=== PATIENT | male | born 1975 | race Caucasian/White ===

== ENCOUNTER 2018-01-20 17:13 | Emergency (ER) | payer SELFPAY ==
[~2018-01-20] VITALS: Ht 190.5 cm; Wt 74.8 kg
[~2018-01-20 17:13] MED LIST: AMOXICILLIN500 MG PO; NORCO 5-325 TA1 EACH PO
[2018-01-20] MEDS ORDERED: NORCO 5-325 TA1 EACH PO (18:06)
[2018-01-20] MEDS ORDERED: CILOXAN3.5 GM OPTH (18:06)
== END 2018-01-20 18:46 | disposition home or self-care (01) ==
LOC: ED 17:13
DX: S05.01XA Injury of conjunctiva and corneal abrasion without foreign body, right eye, initial encounter (principal); Z23 Encounter for immunization; X58.XXXA Exposure to other specified factors, initial encounter; Y93.89 Activity, other specified
CPT/HCPCS: 90471; 90715; 99283

== ENCOUNTER 2021-09-20 17:35 | Emergency (ER) | payer OTHER ==
[~2021-09-20] VITALS: Ht 190.5 cm; Wt 83.9 kg
[~2021-09-20 17:35] MED LIST changes: +CILOXAN3.5 GM OPTH
[2021-09-20] MEDS ORDERED: BACITRACIN28.4 GM TOP (19:55)
== END 2021-09-20 20:15 | disposition home or self-care (01) ==
LOC: ED 17:35
DX: S61.011A Laceration without foreign body of right thumb without damage to nail, initial encounter (principal); Z23 Encounter for immunization; W26.8XXA Contact with other sharp object(s), not elsewhere classified, initial encounter
CPT/HCPCS: 12002; 90471; 90715; 99282-25